=== PATIENT | female | born 1940 | race Caucasian/White ===

== ENCOUNTER 2017-05-26 18:53 | Emergency (ER) ==
[2017-05-26 19:09] VITALS: BP 114/71; TEMP 98.7; BMI 24.7
--- NOTE | 2017-05-26 19:31 | ED.PDOC ---
General ED Provider: Dr. KATHARINE MORRISON JR Chief Complaint: Ankle Pain/Injury Stated Complaint: 10:30 this morning "Rolled" left ankle this AM. Pain lateral foot.Painful to bear wt. Tender, swollen. Hx Fx same ankle with fixation [address] Dg Ortiz at [facility]. Pain OK at rest, increases to 8 if puts wt on it[End]98.7 74 20 96% 114/71 8/10. . [ End ] Time Seen by Physician: 19:32 Mode of Arrival: Walk-In Information Source: Patient Exam Limitations: No limitations Primary Care Provider: WADE FARLEY Nursing and Triage Documentation Reviewed and Agree: No Review of Systems - Review Of Systems Constitutional: Reports: No symptoms Eyes: Reports: No symptoms Ears, Nose, Mouth, Throat: Reports: No symptoms Respiratory: Reports: No symptoms Cardiac: Reports: No symptoms GI: Reports: No symptoms : Reports: No symptoms Musculoskeletal: Reports: No symptoms Skin: Reports: No symptoms Neurological: Reports: No symptoms Endocrine: Reports: No symptoms Hematologic/Lymphatic: Reports: No symptoms All Other Systems: Other Past Medical History - Past Medical History Endocrine: Reports: Dyslipidemia Cardiovascular: Reports: Hypertension Respiratory: Reports: None Hematological: Reports: None Gastrointestinal: Reports: None Genitourinary: Reports: None Neuro/Psych: Reports: None Musculoskeletal: Reports: None Cancer: Reports: None Last Menstrual Period: unknown Other Pertinent Past Medical History: osteoporosis - Surgical History General Surgical History: Reports: Hysterectomy, Appendectomy, Cholecystectomy, Orthopedic (left ankle trimalleolar fx), Other ( Colon surg, bilat iridotomy, osteoporosis) - Family History Family History: Reports: Unknown - Social History Smoking Status: Never smoker Hx Substance Use: No Alcohol Screening: None Physical Exam - Physical Exam Appearance: Well-appearing Pain Distress: Moderate Neck: Supple Respiratory: Airway patent Musculoskeletal: Normal strength, ROM intact, No calf tenderness, Edema (left foot and ankle edema tender lateral left foot) Skin: Warm, Dry, Normal color Neurological: Sensation intact, Motor intact, Reflexes intact, Cranial nerves intact, Alert, Oriented Psychiatric: Affect appropriate, Mood appropriate Interpretation - Radiology Interpretation Radiology Interpretation By: ED Physician Radiology Results: Positive Exam Interpreted: Other (fracture left base fifth MC and fracture proximal fifth phalanx) Critical Care Note - Critical Care Note Total Time (mins): 0 Course - Course Orders, Labs, Meds: Orders Category Date Time Status FOOT, LEFT 3 VIEWS Stat RADS 05/26/17 19:00 Taken Vital Signs: Temp Pulse Resp BP Pulse Ox 05/26/17 18:54 98.7 F 74 20 114/71 96 Departure - Departure Time of Disposition: 19:35 Disposition: HOME SELF-CARE Discharge Problem: Foot fracture, left Qualifiers: Encounter type: initial encounter Fracture type: closed Qualifier Code: ( S92.902A) Unspecified fracture of left foot, initial encounter for closed fracture Fracture of toe of left foot Qualifiers: Encounter type: initial encounter Toe: lesser toe Fracture type: closed Phalanx : proximal Physeal involvement: unspecified Qualifier Code: (S92.512A) Displaced fracture of proximal phalanx of left lesser toe(s), initial encounter for closed fracture Instructions: Foot Fracture in Adults (ED) Condition: Good Pt referred to PMD for follow-up: Yes Additional Instructions: no weight on left foot may use walker may use knee scooter may use fracture shoe tylenol for pain may use oxycodone sparingly as needed for pain Allergies/Adverse Reactions: Allergies No Known Allergies Allergy (Unverified 06/13/13 12:52) Home Medications: Ambulatory Orders Estradiol 0.5 mg PO DAILY 06/13/13 Ezetimibe/Simvastatin [Vytorin 10-20 mg Tablet] 1 each PO DAILY 06/13/13 Multivit with Calcium,Iron,Min [Essential Daily] 1 each PO DAILY 06/13/13 Nebivolol HCl [Bystolic] 10 mg PO DAILY 06/13/13 Pantoprazole Sodium [Protonix] 40 mg PO BIDAC 06/13/13 Ascorbate Calcium [Vitamin C] 500 mg PO 07/08/16 Calcium Carbonate/Vitamin D3 [Os-Luis 500+D3 Caplet] 1 each PO 07/08/16 Cyanocobalamin (Vitamin B-12) [Vitamin B12] 2,500 mcg PO 07/08/16 Fexofenadine HCl 60 mg PO 07/08/16 L.acidoph,Paracasei, B.lactis [Probiotic] 1 each PO 07/08/16 Meloxicam [Mobic] 7.5 mg PO DAILYWM 07/08/16 Mv-Mn/FA/Vit K/Lycop/Lut/Zeaxa [Ocuvite Eye + Multi Tablet] 07/08/16 [place]-3/Dha/Epa/Dpa/Fish Oil [[place]-3 1,050 mg Softgel] 1 each PO 07/08/16 Sertraline HCl 50 mg PO 07/08/16 Disposition Discussed With: Patient, Family
--- NOTE | 2017-05-27 07:42 | DI ---
EXAM: Radiographs, left foot HISTORY: Initial presentation for left foot injury. COMPARISON: None available. TECHNIQUE: Three views. FINDINGS: Plate and screw fixation of the distal fibula is present across a healed distal fibular d iaphyseal fracture. There is a fracture through the mid portion of the lowermost syndesmotic screw. Two surgical screws present through the medial malleolus. Transverse, minimally-displaced extraar ticular fracture of the base of the fifth metatarsal noted. Transverse, mildly displaced fracture t hrough the base of the fifth proximal phalangeal shaft noted which demonstrate some sclerosis and ca llus formation. Severe tibiotalar joint osteoarthritis suggested. Mild osteoarthritic changes are present throughout the foot. Small plantar calcaneal spur noted. No localized soft tissue abnormali ty identified. IMPRESSION: 1. Acute minimally-displaced proximal fifth metatarsal fracture. 2. Probable subacute minimally-displaced fifth proximal phalangeal fracture. 3. Postoperative changes of the lower leg as described.
== END 2017-05-26 20:17 | disposition home or self-care (01) ==
LOC: ED 18:53
DX: S92.902A Unspecified fracture of left foot, initial encounter for closed fracture (principal); S92.512A Displaced fracture of proximal phalanx of left lesser toe(s), initial encounter for closed fracture
CPT/HCPCS: 99283

== ENCOUNTER 2017-08-25 06:53 | Day surgery (SDC) ==
[2017-08-25] MEDS ORDERED: LIDOCAINE 1% 20 ML MDV ID ONE (07:10)
[2017-08-25] MEDS ORDERED: VERSED ONE (08:05)
[2017-08-25] MEDS ORDERED: DIPRIVAN 20 ML VIAL IVP ONE (08:05)
[2017-08-25 09:15] VITALS: BP 151/67; TEMP 98
--- NOTE | 2017-08-26 09:20 | OP ---
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 MEDICATIONS: SEE ANESTHESIA NOTES. PROCEDURE: COLONOSCOPY, SNARE POLYPECTOMY. REPORT: The risks, benefits, alternatives and limitations were discussed in detail with the patient. Informed consent was obtained. After adequate sedation was achieved, a digital rectal exam revealed good tone, no masses. The colonoscope was introduced into the rectum and advanced under direct visual guidance to the ileocolonic anastomosis. Her colon was a little bit tortuous. The anastomosis was recognized and the small bowel mucosa was unremarkable. The scope was then slowly withdrawn in a circumferential manner examining the mucosa quite carefully. I looked on the proximal and distal side of folds and flexures as best as possible. I retroflexed the scope in the right and left colon where I could to increase visualization. In the proximal colon in the proximal transverse area there are two diminutive polyps. Both of these were destroyed using a hot snare. There was no visible tissue remaining. Withdrawing the scope through the remaining colon revealed a semi sessile 6 mm polyp in the proximal sigmoid area. This was removed by snare technique. There were scattered small mouth diverticula throughout the sigmoid area. No other abnormalities noted including on retroflex view of the anal canal. The prep was good. The withdrawal time was 12 minutes and 0 seconds. The patient tolerated the procedure well with stable vital signs and pulse oximetry throughout. IMPRESSION: 1. Two (2) diminuitive polyps destroyed. 2. Small polyp removed from proximal sigmoid. 3. Sigmoid diverticulosis. RECOMMENDATIONS: 1. High fiber diet. 2. Office visit as needed. 3. Await pathology results. If everything is unremarkable as expected, I recommend repeat colonoscopy examination again in 2 years if she is clinically doing well as expected, sooner if there are any signs or symptoms to indicate otherwise. CC: DR. WADE CHAN
== END 2017-08-25 09:28 | disposition home or self-care (01) ==
LOC: SURG 06:53
PROVIDERS: ATTEND Internal Medicine Gastroenterology
DX: Z08 Encounter for follow-up examination after completed treatment for malignant neoplasm (principal); Z85.038 Personal history of other malignant neoplasm of large intestine; D12.5 Benign neoplasm of sigmoid colon; K57.30 Diverticulosis of large intestine without perforation or abscess without bleeding; Z90.49 Acquired absence of other specified parts of digestive tract

== ENCOUNTER 2019-02-15 08:21 | Emergency (ER) ==
[2019-02-15 08:32] VITALS: BP 176/76; TEMP 99.3; BMI 25.0
--- NOTE | 2019-02-15 08:47 | ED.PDOC ---
General ED Provider: Dr. TEVIN FLOWER MD Chief Complaint: Respiratory Complaint Stated Complaint: dry cough runny nose Time Seen by Physician: 08:33 Mode of Arrival: Walk-In Information Source: Patient Exam Limitations: No limitations Primary Care Provider: WADE FARLEY Nursing and Triage Documentation Reviewed and Agree: Yes Does patient meet sepsis criteria?: No If yes, has appropriate treatment been initiated?: Yes System Inflammatory Response Syndrome: Not Applicable Sepsis Protocol: For patient's 13 years and over: Temp is 96.8 and below OR 101 and greater Pulse >90 BPM Resp >20/minute Acutely Altered Mental Status Are patient's symptoms suggestive of a new infection, such as: -Pneumonia -Skin, Soft Tissue -Endocarditis -UTI -Bone, Joint Infection -Implantable Device -Acute Abdominal Infection -Wound Infection -Meningitis -Blood Stream Catheter Infection -Unknown Review of Systems - Review Of Systems Constitutional: Reports: No symptoms Eyes: Reports: No symptoms Ears, Nose, Mouth, Throat: Reports: Nose discharge Respiratory: Reports: Cough Cardiac: Reports: No symptoms GI: Reports: No symptoms : Reports: No symptoms Musculoskeletal: Reports: No symptoms Skin: Reports: No symptoms Neurological: Reports: No symptoms Endocrine: Reports: No symptoms Hematologic/Lymphatic: Reports: No symptoms All Other Systems: Reviewed and Negative Past Medical History - Past Medical History Endocrine: Reports: Dyslipidemia Cardiovascular: Reports: Hypertension Respiratory: Reports: None Hematological: Reports: None Gastrointestinal: Reports: None Genitourinary: Reports: None Neuro/Psych: Reports: None Musculoskeletal: Reports: None Cancer: Reports: None Last Menstrual Period: unknown Other Pertinent Past Medical History: osteoporosis - Surgical History General Surgical History: Reports: Hysterectomy, Appendectomy, Cholecystectomy, Orthopedic (left ankle trimalleolar fx), Other ( Colon surg, bilat iridotomy, osteoporosis) - Family History Family History: Reports: Unknown - Social History Smoking Status: Never smoker Hx Substance Use: No Alcohol Screening: None Physical Exam - Physical Exam Appearance: Well-appearing, Well-nourished Ill-appearing: Mild Pain Distress: None Eyes: BRIANNA, EOMI, Conjunctiva clear ENT: Rhinorrhea Neck: Supple Respiratory: Airway patent Cardiovascular: RRR, Pulses normal, No rub, No murmur GI/: Soft, Nontender, No masses, Bowel sounds normal, No Organomegaly Musculoskeletal: Normal strength, ROM intact, No edema, No calf tenderness Skin: Warm, Dry, Normal color Neurological: Sensation intact Psychiatric: Affect appropriate, Mood appropriate Critical Care Note - Critical Care Note Total Time (mins): 0 Course - Course Vital Signs: Temp Pulse Resp BP Pulse Ox 02/15/19 08:22 99.3 F 68 20 176/76 H 95 Departure - Departure Time of Disposition: 10:00 Disposition: HOME SELF-CARE Discharge Problem: URI (upper respiratory infection) Qualifiers: URI type: unspecified viral URI Qualified Code(s): J06.9 - Acute upper respiratory infection, unspecified Instructions: Upper Respiratory Infection (ED), Chronic Cough (ED) Condition: Good Pt referred to PMD for follow-up: Yes IPMP verified?: No Prescriptions: Prednisone 20 mg PO DAILYWM 5 Days #5 tablet NS Allergies/Adverse Reactions: Allergies No Known Allergies Allergy (Verified 02/15/19 08:32) Home Medications: Ambulatory Orders Estradiol 0.5 mg PO DAILY 06/13/13 Ezetimibe/Simvastatin [Vytorin 10-20 mg Tablet] 1 each PO DAILY 06/13/13 Multivit with Calcium,Iron,Min [Essential Daily] 1 each PO DAILY 06/13/13 Nebivolol HCl [Bystolic] 10 mg PO DAILY 06/13/13 Pantoprazole Sodium [Protonix] 40 mg PO BIDAC 06/13/13 Ascorbate Calcium [Vitamin C] 500 mg PO DAILY 07/08/16 Calcium Carbonate/Vitamin D3 [Os-Luis 500+D3 Caplet] 1 each PO DAILY 07/08/16 Cyanocobalamin (Vitamin B-12) [Vitamin B12] 2,500 mcg PO 07/08/16 Fexofenadine HCl 60 mg PO DAILY 07/08/16 L.acidoph,Paracasei, B.lactis [Probiotic] 1 each PO DAILY 07/08/16 Mv-Min/FA/Vit K/Lycop/Lut/Zeax [Ocuvite Eye + Multi Tablet] 1 tab PO DAILY 07/08 [place]-3/Dha/Epa/Dpa/Fish Oil [[place]-3 1,050 mg Softgel] 1 each PO DAILY Sertraline HCl 50 mg PO DAILY 07/08/16 Prednisone 20 mg PO DAILYWM 5 Days #5 tablet NS 02/15/19 Transfer Form Completed: No Disposition Discussed With: Family
== END 2019-02-15 10:20 | disposition home or self-care (01) ==
LOC: ED 08:21
DX: R05 Cough (principal); R09.82 Postnasal drip; J34.89 Other specified disorders of nose and nasal sinuses; J06.9 Acute upper respiratory infection, unspecified
CPT/HCPCS: 87502; 99283